=== PATIENT | male | born 1975 | race Two or more races ===

== ENCOUNTER 2021-10-02 16:39 | Emergency (ER) | payer MEDICAID ==
[~2021-10-02] VITALS: Ht 167.6 cm; Wt 83.9 kg
[2021-10-02] MEDS ORDERED: IV NORMAL SALINE 1000 ML BAG IV ONE (16:45)
[2021-10-02] MEDS ORDERED: LACO200T2 PO (16:49)
[2021-10-02] MEDS ORDERED: VALP250C3 PO (16:49)
[2021-10-02] MEDS ORDERED: OMEP20CA15 PO (16:49)
[2021-10-02] MEDS ORDERED: DEXA4TAB PO (16:49)
[2021-10-02] MEDS ORDERED: LEVE100023 PO (16:49)
[2021-10-02] MEDS ORDERED: LORAZEPAM 2 MG/1 ML VIAL IV ONE ×2 (17:00→18:15)
--- NOTE | 2021-10-02 17:00 | NUR ---
CLAUDIOI: Pt's daughter Guadalupe [phone].
[2021-10-02] MEDS ORDERED: LORAZEPAM 2 MG/1 ML VIAL ONE ×2 (17:06→18:42)
[2021-10-02 17:09] LABS: HEMATOCRIT 47.6 % (36.7-47.1); MEAN CORPUSCULAR HEMOGLOBIN 32.1 uug (23.8-33.4); MEAN CORPUSCULAR VOLUME 91.1 fL (73.0-96.2); PLATELET COUNT (AUTO) 277 K/uL (152-348)
[2021-10-02 17:15] LABS: CREATININE 0.8 mg/dL (0.6-1.3); POTASSIUM 3.4 mmol/L (3.5-5.1)
[2021-10-02 17:21] LABS: BILIRUBIN,DIRECT 0.1 mg/dL (0.0-0.2); BILIRUBIN,TOTAL 0.3 mg/dL (0.2-1.0); TOTAL PROTEIN, SERUM 7.3 g/dL (6.4-8.2)
[2021-10-02 17:46] LABS: *BILIRUBIN,URIN NEGATIVE (NEGATIVE); *BLOOD, URINE NEGATIVE (NEGATIVE); *CLARITY,URINE CLEAR (CLEAR); *COLOR,URINE LIGHT YELLOW (YELLOW); *KETONES,URINE NEGATIVE (NEGATIVE); *UROBILINOGEN,URINE 0.2 E.U./dl (NORMAL); LEUKOCYTE ESTERASE ,URINE NEGATIVE (NEGATIVE); NITRITE, URINE NEGATIVE (NEGATIVE); PH,URINE 6.5 (5.0-8.0); UGLUCOSE NEGATIVE (NEGATIVE)
--- NOTE | 2021-10-02 18:26 | NUR ---
called [facility] transfer center, talked to sanjay, who said that the pt will be accepted to [facility] by Dr. Sarabia. clinicals was faxed to [phone] per request.
--- NOTE | 2021-10-02 18:40 | NUR ---
anisa rice talked to [facility] accepting md. gave report to [facility] transfer rn.
[2021-10-02 18:54] LABS: THYROID STIMULATING HORMONE 1.467 mIU/mL (0.358-3.740)
[2021-10-02] MEDS ORDERED: LORA-259 PO (19:08)
--- NOTE | 2021-10-02 19:17 | NUR ---
Patient does not wish to proceed with medical care recommended by Dr. dorsey ). Patient given information related to possible complications, up to and including , which could occur as a result of leaving the hospital at this time. Patient verbalizes understanding of risks involved due to leaving against medical advice. Patient has signed AMA form.
--- NOTE | 2021-10-02 19:40 | NUR ---
Patient does not wish to proceed with medical care recommended by Ene Hu. Patient given information related to possible complications, up to and including , which could occur as a result of leaving the hospital at this time. Patient verbalizes understanding of risks involved due to leaving against medical advice. Patient has signed AMA form. A/O x4, steady gait. Denies any pain/discomfort upon discharge. No n/v/d. No c/o GALLARDO. Picked up by family memeber.
[2021-10-02 19:53] VITALS: BP 154/89
== END 2021-10-02 19:45 | disposition left against medical advice (07) ==
LOC: ER 16:40
DX: G40.901 Epilepsy, unspecified, not intractable, with status epilepticus (principal); Z85.841 Personal history of malignant neoplasm of brain; Z53.29 Procedure and treatment not carried out because of patient's decision for other reasons; Z20.822 Contact with and (suspected) exposure to COVID-19; Z79.899 Other long term (current) drug therapy
CPT/HCPCS: 36415; 70450; 71045; 80048; 80061; 80076; 80164; 81003; 82550; 84443; 84484; 85025; 87426; 93005; 96361; 96374; 96376; 99291; J2060 ×2; 70030-TC; A4663; J7030